=== PATIENT | male | born 1985 | race African-American/Black ===

== ENCOUNTER 2018-07-24 01:03 | Emergency (ER) | payer OTHER ==
[~2018-07-24] VITALS: Ht 170.2 cm; Wt 106.6 kg
[2018-07-24] MEDS ORDERED: ADALAT CC30 MG PO (04:07)
== END 2018-07-24 04:12 | disposition home or self-care (01) ==
LOC: ER 01:03
DX: I16.0 Hypertensive urgency (principal); I10 Essential (primary) hypertension